=== PATIENT | female | born 1930 | race Caucasian/White ===

== ENCOUNTER 2016-09-04 19:17 | Emergency (ER) | payer OTHER ==
[~2016-09-04] VITALS: Ht 160 cm; Wt 54.4 kg
[~2016-09-04 19:17] MED LIST: ASPIRIN325 M3 PO; ATORVASTATIN CA20 MG PO; CIPRO250 MG PO; CORDARONE200 M1 PO; DONEPEZIL HYDROCHLORIDE PO; NAMENDA10 MG PO; QUETIAPINE FUMA25 M1 PO; SYNTHROID PO
--- NOTE | 2016-09-04 19:17 | NUR ---
PT [facility] BLS. TAKEN TO BED 5
[2016-09-04 19:19] VITALS: BP 125/86
--- NOTE | 2016-09-04 19:36 | NUR ---
BIBA 86 YO KURT FROM [facility] WITH LACERATION ON THE RIGHT [place]. HX OF DEMENTIA, HTN & HYPERLIPIDEMIA
[2016-09-04] MEDS ORDERED: LIDOCAINE 1% 500 MG/50 ML VIAL INJ ONE (20:00)
[2016-09-04] MEDS ORDERED: BACITRACIN OINT 500 UNITS/GM PKT TP ONE (20:00)
--- NOTE | 2016-09-04 20:15 | NUR ---
Dr. Harris evaluating patient at bedside.
--- NOTE | 2016-09-04 20:15 | NUR ---
DR. WATERS EVALUATING THE PT.
--- NOTE | 2016-09-04 21:15 | NUR ---
PT WILL BE GOING BACK TO [facility]. REPORT GIVEN TO SHANKAR. CALLED [facility] AND ETA IS 10 MINUTES.
--- NOTE | 2016-09-04 21:25 | NUR ---
Patient discharged with v/s stable BY DR. WATERS. Written and verbal after care instructions given and explained. Patient verbalized understanding. Ambulance Transport with to [facility]. All questions addressed prior to discharge. Advised to follow up with PMD.
[2016-09-04 21:29] VITALS: BP 132/92
--- NOTE | 2016-09-04 23:55 | NUR ---
Chart checked and completed.
== END 2016-09-04 21:25 ==
LOC: MED 19:17
DX: S81.811A Laceration without foreign body, right lower leg, initial encounter (principal); Z79.82 Long term (current) use of aspirin; Z79.899 Other long term (current) drug therapy; W06.XXXA Fall from bed, initial encounter; Y93.89 Activity, other specified; Y92.89 Other specified places as the place of occurrence of the external cause; Y99.8 Other external cause status
CPT/HCPCS: 12002; 99283; J2001